=== PATIENT | male | born 1955 | race Caucasian/White ===

== ENCOUNTER 2018-11-30 06:47 | Emergency (ER) | payer OTHER ==
[~2018-11-30] VITALS: Ht 165.1 cm; Wt 68.0 kg
[2018-11-30] MEDS ORDERED: HYDREA500 M1 (07:16)
== END 2018-11-30 18:14 | disposition home or self-care (01) ==
LOC: ER 06:47 → CPU-OBS 07:56 → ER 18:14
DX: R00.2 Palpitations (principal)

== ENCOUNTER 2019-02-02 14:41 | Emergency (ER) | payer OTHER ==
[~2019-02-02] VITALS: Ht 167.6 cm; Wt 68.0 kg
[~2019-02-02 14:41] MED LIST: HYDREA500 M1
== END 2019-02-02 21:15 | disposition home or self-care (01) ==
LOC: ER 14:41
DX: B34.9 Viral infection, unspecified (principal)

== ENCOUNTER 2022-05-08 08:59 | Emergency (ER) | payer OTHER ==
[~2022-05-08] VITALS: Ht 162.6 cm; Wt 61.7 kg
[2022-05-08] MEDS ORDERED: COZAAR50 MG PO (09:17)
[2022-05-08] MEDS ORDERED: HYDREA500 M1 PO (09:18)
== END 2022-05-08 13:29 | disposition home or self-care (01) ==
LOC: ER 08:59
DX: S09.90XA Unspecified injury of head, initial encounter (principal); W19.XXXA Unspecified fall, initial encounter; Y93.9 Activity, unspecified; Y92.9 Unspecified place or not applicable; Y99.9 Unspecified external cause status